=== PATIENT | female | born 1930 | race Two or more races ===

== ENCOUNTER → 2016-11-13 | Outpatient (CLI) | payer MEDICARE, BC | END | disposition home or self-care (01) | LOC: Rad HDHVI 08:03 | PROVIDERS: ATTEND Internal Medicine Cardiovascular Disease | DX: Z01.810 Encounter for preprocedural cardiovascular examination (principal); I10 Essential (primary) hypertension | CPT/HCPCS: 93306; 93880 ==

== ENCOUNTER → 2016-12-09 | Outpatient (CLI) | payer MEDICARE, OTHER ==
[~2016-12-09] VITALS: Ht 182.9 cm; Wt 84.8 kg
[~2016-12-09] MED LIST: ADENOSINE 71 MG in GIVE UN-DILUTED 0 ML IV ONE; ADENOSINE 90 MG/30 ML INJ IV ONE
[2016-12-09 12:12] LABS: Basophils # (auto) 0 uL; Basophils % (auto) 0.4 % (0.0-2.0); Eosinophils # (auto) 0.1 uL; Eosinophils % (auto) 1.7 % (0.0-7.0); Hematocrit 42.7 % (36.0-46.0); Lymphocytes # (auto) 1.9 uL; Lymphocytes % (auto) 22.9 % (10.0-50.0); Mean Corpuscular Hemoglobin 28.5 pg (28.0-32.0); Mean Corpuscular Hgb Conc. 32.7 g/dL (32.0-36.0); Mean Corpuscular Volume 87.1 fL (80.0-100.0); Mean Platelet Volume 8.9 fL (7.4-10.4); Monocytes # (auto) 0.6 uL; Monocytes % (auto) 7.4 % (0.0-12.0); Neutrophils # (auto) 5.7 uL; Neutrophils % (auto) 67.6 % (37.0-80.0); Platelet Count (auto) 272 10^3/uL (140-450); Red Cell Distribution Width 15.3 % (11.6-16.0); White Blood Cell 8.5 10^3/uL (4.4-10.8)
[2016-12-09 12:37] LABS: Potassium 4.1 mmol/L (3.5-5.1)
[2016-12-09 12:43] LABS: Albumin 3.4 g/dL (3.4-5.0); BUN/Creatinine Ratio 17.6; Calcium 9.1 mg/dL (8.5-10.1)
[2016-12-09 12:47] LABS: Bilirubin, Total 0.7 mg/dL (0.2-1.0); Total Protein 7.6 g/dL (6.4-8.2)
[2016-12-09 16:27] LABS: Urine Bilirubin Negative (Negative); Urine Blood Negative /uL (Negative); Urine Color Yellow (Yellow); Urine Glucose Normal (Normal); Urine Ketone Negative (Negative); Urine Nitrite Negative (Negative); Urine Urobilinogen Normal (Negative); Urine pH 6.5 (5.0-8.0)
[2016-12-09 18:59] LABS: Bilirubin, Direct 0.1 mg/dL (0-0.2)
== END | disposition home or self-care (01) ==
LOC: Rad HDHVI 09:07
PROVIDERS: ATTEND Internal Medicine Cardiovascular Disease
DX: I10 Essential (primary) hypertension (principal); E78.00 Pure hypercholesterolemia, unspecified; K74.1 Hepatic sclerosis; E11.9 Type 2 diabetes mellitus without complications; E03.9 Hypothyroidism, unspecified; D64.9 Anemia, unspecified; E55.9 Vitamin D deficiency, unspecified; N39.0 Urinary tract infection, site not specified
CPT/HCPCS: 36415; 78452; 80048; 80061; 80076; 81003; 82306; 83036; 84443; 85025; 93005; 96374; 96375; J0153